=== PATIENT | female | born 1935 | race African-American/Black ===

== ENCOUNTER 2018-02-21 13:45 | Inpatient (IN) | payer OTHER, MEDICAID, MEDICARE ==
[~2018-02-21] VITALS: Ht 167.6 cm; Wt 96.6 kg
[2018-02-24] MEDS ORDERED: OMEP20TA93 PO (11:17)
[2018-02-24] MEDS ORDERED: METF1000 PO (11:17)
[2018-02-24] MEDS ORDERED: TOVI4TAB PO (11:17)
[2018-02-24] MEDS ORDERED: EZET1TAB8 PO (11:17)
[2018-02-24] MEDS ORDERED: NIFE1TAB PO (11:17)
[2018-02-24] MEDS ORDERED: HYDR-3516 PO (11:17)
[2018-02-24] MEDS ORDERED: MELO15TA20 PO (11:17)
[2018-02-24] MEDS ORDERED: LISI-515 PO (11:17)
[2018-02-24] MEDS ORDERED: CHLORHEXIDINE GLUCONATE 4% SOLN 120 ML BTL TOPICAL SCH (11:45)
[2018-02-24] MEDS ORDERED: ceFAZolin 2 GM PREMIX 50 ML IV SCH (11:45)
[2018-02-24] MEDS ORDERED: VANCOMYCIN 1000 MG/NS 250 ML (for <70 kg) IV SCH ×2 (11:45)
[2018-02-24] MEDS ORDERED: LACTATED RINGER'S 1000 ML IV PRN (11:45)
[2018-02-24] MEDS ORDERED: SODIUM CHLORID 0.9% 500 ML IV PRN (11:45)
[2018-02-24] MEDS ORDERED: METOPROLOL TARTRATE 25 MG TAB PO PRN (11:45)
[2018-02-24] MEDS ORDERED: POVIDONE IODINE 5% (ANTISEPSIS KIT) 4 APPLICATIONS EACH NARE PRN (11:45)
[2018-02-24] MEDS ORDERED: CHLORHEXIDINE GLUCONATE 2 % 1 PACK (2 CLOTHS) TOPICAL PRN (11:45)
[2018-02-24] MEDS ORDERED: GENTAMICIN SULFATE 80 MG/2 ML VIAL ONE (11:54)
[2018-02-24] MEDS ORDERED: ONDANSETRON HCL 4 MG/2 ML VIAL IV ONE (12:00)
[2018-02-24] MEDS ORDERED: LIDOCAINE HCL 1% PF 5 ML SYRINGE OTHER ONE (12:00)
[2018-02-24] MEDS ORDERED: ceFAZolin INJ 1,000 MG VIAL IV ONE (12:00)
[2018-02-24] MEDS ORDERED: PROPOFOL 200 MG/20 ML AMP IV ONE (12:00)
[2018-02-24] MEDS ORDERED: ePHEDrine/NS 25 MG/5 ML SYRINGE IV ONE (12:00)
[2018-02-24] MEDS ORDERED: LACTATED RINGER'S 1000 ML INJ 1,000 ML IV ONE (12:00)
[2018-02-24] MEDS ORDERED: PHENYLEPH/NS 1000 MCG/10 ML SYR IV ONE (12:00)
[2018-02-24] MEDS ORDERED: MIDAZOLAM HCL 2 MG/2 ML VIAL ONE (12:20)
[2018-02-24] MEDS ORDERED: BUPIVACAINE LIPOSOME PF 1.3% 20 ML VIAL ONE (12:20)
[2018-02-24] MEDS ORDERED: ACETAMINOPHEN 1000 MG/100 ML 100 ML IV ONE ×2 (12:22→16:08)
[2018-02-24] MEDS ORDERED: LIDOCAINE HCL 1% PF 5 ML AMPULE ONE (12:27)
[2018-02-24] MEDS ORDERED: PROPOFOL 500 MG/50 ML INJ 50 ML ONE (12:50)
[2018-02-24] MEDS ORDERED: BUPIVACAINE PF 0.75% DEX-WATER INJ 2 ML AMP ONE (12:51)
[2018-02-24] MEDS ORDERED: ROPIVACAINE PERI-ARTICULAR INJECTION. P-ARTICULR SCH ×5 (13:00)
[2018-02-24] MEDS ORDERED: HYDR-3288 PO (17:09)
[2018-02-24] MEDS ORDERED: ASPI81TA23 PO (17:10)
[2018-02-24] MEDS ORDERED: WALKER WHEELS/F1 MIS (17:11)
[2018-02-24] MEDS ORDERED: *morphine SULFATE 4 MG/ML PERIprocedure ONLY ONE (17:14)
[2018-02-24] MEDS ORDERED: ACETAMINOPHEN/HYDROcodone 325 MG/7.5 MG TAB PO PRN (17:15)
[2018-02-24] MEDS ORDERED: ALUMINUM/MAGNESIUM/SIMETH 30 ML CUP PO PRN (17:15)
[2018-02-24] MEDS ORDERED: ZOLPIDEM TARTRATE 5 MG TAB PO PRN (17:15)
[2018-02-24] MEDS ORDERED: Post-op Orders (for Pharmacy) XX ONE (17:15)
--- NOTE | 2018-02-24 17:17 | HHI.PR ---
Immediate Post Op Note Procedure Date: February 24, 2018 Pre Op Diagnosis: R Knee Severe OA;Genu Valgus Deformity Post Op Diagnosis: Same Surgeon: Jaret Whitehead MD Box Attacher(s): Louisa Smith PA-C Procedure: R TKR Complications: None Specimen(s) removed: None Estimated blood loss: 50cc Anesthesia: Regional Block, Spinal, Local Drains: Hemovac Tourniquet time (min at mmHg) 75 mins at 250 mm Hg Patient to: PACU Patient Condition: Good Implant/Devices: SEE IMPLANT LOG (if applicable) Date/Time of Procedure: SEE SURGICAL CARE RECORD Jaret Whitehead MD February 24, 2018 17:17
[2018-02-24] MEDS ORDERED: *morphine SULFATE 8 MG/ML PERIprocedure ONLY ONE ×2 (17:21→17:35)
[2018-02-24] MEDS ORDERED: DO NOT ADM ANY ANTICOAGULANT DRUGS PRN (17:30)
[2018-02-24] MEDS: LACTATED RINGER'S 1000 ML INJ 1,000 ML IV SCH (17:30)
[2018-02-24] MEDS ORDERED: MORPHINE SULFATE 4 MG/ML INJ IV PRN (17:30)
--- NOTE | 2018-02-24 17:43 | RADRPT ---
EXAM DATE/TIME: 02/24/2018 17:17 [place] COMPARISON: No previous studies available for comparison. INDICATIONS : Post Op MEDICAL HISTORY : None. SURGICAL HISTORY : None. ENCOUNTER: Initial ACUITY: 1 day PAIN SCORE: Non-responsive. LOCATION: Right Knee FINDINGS: Right total knee arthroplasty is present. Hardware appears intact. Alignment is anatomic. Skin staple s are present ventrally. Surgical drain is present. CONCLUSION: Satisfactory appearance post right TKA Jonathon Curry MD on February 24, 2018 at 17:41 Board Certified Radiologist. This report was verified electronically.
[2018-02-24] MEDS ORDERED: *HYDROmorphone PF 0.5 MG/0.5 ML PERIprocedure ONLY ONE (18:00)
[2018-02-24 20:03] VITALS: BP 150/72; PULSE 85; RESP 17; TEMP 97.7; O2SAT 93
--- NOTE | 2018-02-24 20:30 | MP ---
cc: Jaret Whitehead MD, Roy DATE OF OPERATION: 02/24/2018 PREOPERATIVE DIAGNOSIS: Right knee severe tricompartment osteoarthritis, genu valgus deformity. POSTOPERATIVE DIAGNOSIS: Right knee severe tricompartment osteoarthritis, genu valgus deformity. PROCEDURE PERFORMED: Right total knee arthroplasty-cemented [employer] Vanguard. SURGEON: Jaret Whitehead MD TESTER OPERATOR: Louisa Smith PA-C TOURNIQUET TIME: 75 minutes at 250 mmHg. ESTIMATED BLOOD LOSS: 50 mL. ANESTHESIA: Spinal, regional adductor canal block, intraarticular block. CONDITION: Stable. PLAN OF ACTIVITIES: As per orders. DESCRIPTION OF PROCEDURE: My bankruptcy assistant, Louisa Smith PA-C was present for the entirety of the surgical case. She was medically necessary for the entire case because of the complexity of the case and to facilitate the performance of the procedure. The GLAZIER APPRENTICE at the back table did not have the skill set for this case to manipulate the instruments, e.g. multiple different soft tissue retractors, trial implants, and permanent implants, including bone cement. The patient was brought in the operating room and had satisfactory adductor canal regional anesthesia, spinal anesthesia by Dr. Samm Stubbs, department of anesthesia. The right lower extremity was prepped and draped in the usual sterile manner. The extremity was exsanguinated by elevation and the tourniquet was inflated to 250 mmHg. A small anterior exposure to the knee was made. A paramedian capsulotomy was performed and the patella was dislocated laterally. The patient was found to have severe tricompartmental osteoarthritis with a genu valgus deformity. Using the [employer] Vanguard total knee arthroplasty system, IM guide was used for the distal femur to accept a 70 mm femoral component. Extramedullary guide was used for the proximal tibia to accept the 75 mm tibial component. Considerable time was made in providing appropriate balance in both flexion and extension, including removal of posterior osteophytes from the distal femur laterally. The knee was found to be well-balanced with the 10 mm insert. The undersurface of the patella was removed and a 31 mm patellar 3-prong prosthesis was used. All trial components were removed and preparation for cementing was made. The knee was injected with local anesthesia, provided by the department of pharmacy, 100 mL was the injection. Then, the knee was prepared for cementing, using Waterpik irrigation and drying with sponges and suction. Two packages of bone cement were used from [employer], high-viscosity bone cement. Initially, the tibial component was cemented, which was a 75 mm tibial component, followed by the femoral component, which was a #70 femoral component. All excess bone cement was removed and a 10 mm trial insert was inserted and the undersurface of the patella was cemented in, using a 31 mm, 3-prong patellar prosthesis. The bone cement was allowed to harden for 12 minutes. All trial components were removed and a 10 x 75 mm polyethylene plastic lipped was inserted onto the proximal tibial tray. The patient was found to have excellent stability, excellent balancing of the knee. A lateral retinacular release was performed and then, the patella was found to track very well in the patellofemoral compartment with a "no-thumbs technique." Tourniquet was deflated. All bleeders were then coagulated. The wound itself was dry. The wound was irrigated with 4000 mL of sterile saline antibiotic solution, using the Waterpik irrigation system. The wound was closed over an 1/8 inch Hemovac drain. The capsule and extensor mechanism were repaired, using multiple interrupted #2 Ti-Cron suture. The wound was closed in layers, using 0 Vicryl and 2-0 Vicryl. Skin was approximated with skin rosanna. Sterile dressings were applied. The patient tolerated the procedure well and arrived to the recovery room in stable and satisfactory condition. MD KAMAR Kent/KATHIE/leyla , 05:02 PM , 05:56 PM
[2018-02-24] MEDS: ASPIRIN EC 81 MG TABEC PO SCH (21:52)
[2018-02-24 23:52] VITALS: BP 127/63; PULSE 87; RESP 17; TEMP 98.1; O2SAT 94
[2018-02-25 04:01] LABS: HEMATOCRIT 31.4 % (35.0-46.0); HEMOGLOBIN 10.1 GM/DL (11.6-15.3)
[2018-02-25] MEDS: LACTATED RINGER'S 1000 ML INJ 1,000 ML IV SCH ×2 (04:09→18:05)
[2018-02-25 04:50] VITALS: BP 138/66; PULSE 87; RESP 16; TEMP 99.3; O2SAT 93
--- NOTE | 2018-02-25 07:18 | PD.ORT.PN ---
Subjective Subjective Remarks POD#1 R TKR No C/O SOB;no chest pain Explained to patient/son Sarbjit operative findings;answered multiple questions Objective Vitals Vital Signs Date Time Temp Pulse Resp B/P (MAP) Pulse Ox O2 Delivery O2 Flow Rate FiO2 02/25/18 04:50 99.3 87 16 138/66 (90) 93 02/24/18 23:52 98.1 87 17 127/63 (84) 94 02/24/18 20:03 97.7 85 17 150/72 (98) 93 02/24/18 18:43 Room Air 02/24/18 18:00 84 16 143/68 (93) 97 Room Air 02/24/18 17:45 74 16 130/61 (84) 97 Room Air 02/24/18 17:30 70 16 112/59 (76) 97 Room Air 02/24/18 17:15 76 16 130/59 (82) 98 Room Air 02/24/18 17:10 98.0 84 16 129/57 (81) 99 02/24/18 11:33 98.3 82 16 136/77 (96) 100 I/O 02/24/18 02/24/18 02/24/18 02/25/18 02/25/18 02/25/18 07:00 15:00 23:00 07:00 15:00 23:00 Intake Total 1450 ml 561 ml Output Total 100 ml 15 ml Balance 1350 ml 546 ml Intake IV Total 50 ml 561 ml Other 1400 ml Output Drainage Total 50 ml 15 ml Estimated Blood Loss 50 ml # Voids 2 Result Diagram: 02/25/18 0331 Imaging Last 24 hours Impressions Knee X-Ray 02/24/18 1705 Signed Impressions: Service Date/Time: Saturday, February 24, 2018 17:17 - CONCLUSION: Satisfactory appearance post right TKA Jonathon Curry MD Objective Remarks N/V intact Dressings dry Assessment & Plan Assessment and Plan Ortho stable PT/Rehab Aspirin EC 81mg BID x 4 weeks,TEDS for DVT/PE prophylaxsis Discharge SNF tomorrow if medically stable Jaret Whitehead MD February 25, 2018 07:18
[2018-02-25 08:00] VITALS: BP 146/70; PULSE 95; RESP 19; TEMP 98.8; O2SAT 94
[2018-02-25] MEDS: ACETAMINOPHEN/HYDROcodone 325 MG/7.5 MG TAB PO PRN ×4 (08:00→20:15)
[2018-02-25] MEDS: metFORMIN HCL 500 MG TAB PO SCH ×2 (10:00→18:14)
[2018-02-25] MEDS: EZETIMIBE 10 MG TAB PO SCH (10:00)
--- NOTE | 2018-02-25 10:18 | PD.CONS ---
HPI Service [facility] Hospitalists Consult Requested By Dr. Whitehead Reason for Consult Medical management Primary Care Physician No Primary Care Physician Diagnoses: (1) Osteoarthritis of right knee History of Present Illness 82-year-old female with history of osteoarthritis, HTN, DM, GERD, admitted to [facility] for right total knee arthroplasty by Dr. Whitehead. Hospitalist consulted for medical management. The patient seen on postop day 1. Son is at bedside. She is seen sitting on the side of the bed, attempting ambulation with physical therapy. She reports right knee pain rated 8/10, improved after receiving pain medications. She states she has some slight dizziness associated with the knee pain. Denies any fever/chills, headache, lightheadedness, chest pain, palpitations, shortness of breath, abdominal pain, nausea/vomiting, or diarrhea. She has no other medical complaints at this time. Review of Systems Except as stated in HPI: all other systems reviewed are Neg Past Family Social History Allergies: Coded Allergies: sodium chloride (Verified Adverse Reaction, Intermediate, Swelling, ) PO SALT INTAKE CAUSES SWELLING OF TONGUE AND "PEELING LIPS" Past Medical History Osteoarthritis Hypertension Diabetes mellitus GERD Past Surgical History Right total knee arthroplasty 02/24 during this admission Dental implants Hysterectomy Reported Medications Toviaz ER (Fesoterodine Fumarate) 4 mg Joao 4 Mg PO DAILY Hydrocodone-Acetaminophen 5-325 mg Tab 1 Tab PO Q6H PRN Meloxicam 15 Mg Tab 15 Mg PO DAILY Metformin (Metformin HCl) 1,000 Mg Tab 1,000 Mg PO BID With a meal Ezetimibe 10 Mg Tab 10 Mg PO DAILY Lisinopril 20 Mg Tab 20 Mg PO DAILY Omeprazole 20 Mg Tab 20 Mg PO DAILY Nifedipine ER 24 HR (Nifedipine) 90 Mg Tab 90 Mg PO DAILY Active Ordered Medications Current Medications Medications (Trade) Dose Ordered Sig/Janelle Route Start Time Stop Time Status Last Admin (Zetia) 10 mg DAILY PO 02/25/18 09:00 (Prinivil) 20 mg DAILY PO 02/25/18 09:00 (Glucophage) 1,000 mg BIDPC PO 02/25/18 09:00 (Procardia Xl) 90 mg DAILY PO 02/25/18 09:00 (Detrol La) 4 mg DAILY PO 02/25/18 09:00 (Protonix) 20 mg DAILY PO 02/25/18 09:00 Lactated Ringer's 1,000 ml @ 80 mls/hr [id number] IV 02/24/18 17:05 02/24/18 17:30 (Morphine Inj) 4 mg Q3H PRN IV 02/24/18 17:30 (Meherrin 7.5-325 Mg) 1 tab Q4H PRN PO 02/24/18 17:15 (Meherrin 7.5-325 Mg) 2 tab Q4H PRN PO 02/24/18 17:15 02/25/18 08:00 (Zofran Odt) 4 mg Q6H PRN PO 02/24/18 17:30 (Mag-Al Plus Susp Liq) 30 ml Q6H PRN PO 02/24/18 17:15 (Ambien) 5 mg HS PRN PO 02/24/18 17:15 (Ecotrin Ec) 81 mg BID PO 02/24/18 21:00 03/24/18 09:01 02/24/18 21:52 ([facility] Nursing Information) ALL NURSING DEPARTME... UNSCH PRN .XX 02/24/18 17:30 02/25/18 17:29 Family History Mother with CHF Father , had amputations Social History Denies any tobacco, alcohol, or illicit drug use. Physical Exam Vital Signs Vital Signs Date Time Temp Pulse Resp B/P (MAP) Pulse Ox O2 Delivery O2 Flow Rate FiO2 02/25/18 08:00 98.8 95 19 146/70 (95) 94 02/25/18 04:50 99.3 87 16 138/66 (90) 93 02/24/18 23:52 98.1 87 17 127/63 (84) 94 02/24/18 20:03 97.7 85 17 150/72 (98) 93 02/24/18 18:43 Room Air 02/24/18 18:00 84 16 143/68 (93) 97 Room Air 02/24/18 17:45 74 16 130/61 (84) 97 Room Air 02/24/18 17:30 70 16 112/59 (76) 97 Room Air 02/24/18 17:15 76 16 130/59 (82) 98 Room Air 02/24/18 17:10 98.0 84 16 129/57 (81) 99 02/24/18 11:33 98.3 82 16 136/77 (96) 100 Physical Exam GENERAL: Well-nourished, well-developed pleasant elderly female patient in NAD. SKIN: Warm and dry. No rash. HEAD: Normocephalic. Atraumatic. EYES: Pupils equal and round. No scleral icterus. No injection or drainage. ENT: No nasal bleeding or discharge. Mucous membranes pink and moist. NECK: Supple. Trachea midline. CARDIOVASCULAR: Regular rate and rhythm. No murmur appreciated. RESPIRATORY: No accessory muscle use. Clear to auscultation. Breath sounds equal bilaterally. GASTROINTESTINAL: Abdomen soft, non-tender, nondistended. Normoactive bowel sounds x4. MUSCULOSKELETAL: No obvious deformities. Extremities without clubbing, cyanosis , or edema. Right lower extremity in surgical dressing with Navjot wrap, CDI. NEUROLOGICAL: Awake and alert. No obvious cranial nerve deficits. Motor grossly within normal limits. Normal speech. PSYCHIATRIC: Appropriate mood and affect; insight and judgment normal. Laboratory Laboratory Tests Test 02/25/18 03:31 Hemoglobin 10.1 Hematocrit 31.4 Result Diagram: 02/25/18 0331 Imaging Last Impressions Knee X-Ray 02/24/18 6026 Signed Impressions: Service Date/Time: Saturday, February 24, 2018 17:17 - CONCLUSION: Satisfactory appearance post right TKA Jonathon Curry MD Assessment and Plan Problem List: (1) Osteoarthritis of right knee ICD Code: M17.11 - Unilateral primary osteoarthritis, right knee Assessment and Plan 82-year-old female with history of osteoarthritis, HTN, DM, GERD, admitted to [facility] for right total knee arthroplasty by Dr. Whitehead. Osteoarthritis s/p Right TKA: Surgery done 02/24/[address] Whitehead. -Continue pain control with Meherrin prn -DVT prophylaxis with aspirin bid -Continue physical therapy, progress to full weightbearing Anemia: Hgb 10.1 post-operatively -stable, no signs of profuse bleeding -monitor CBC Hypertension/Hyperlipidemia: Chronic, BP fairly well-controlled -Continue patient's nifedipine 90 mg daily, lisinopril 20 mg daily, [id number] mg daily -Monitor BP, adjust antihypertensives as needed Diabetes mellitus: Chronic -Continue patient's metformin 1000 mg bid GERD: Chronic -Continue patient's PPI DVT prophylaxis: Aspirin bid per ortho Discharge Planning: The patient is medically stable for discharge. Discussed Condition With Patient, Patient's Son at bedside Problem Qualifiers (1) Osteoarthritis of right knee: Qualified Codes: M17.11 - Unilateral primary osteoarthritis, right knee Linda Phelan PA-C February 25, 2018 10:18
[2018-02-25] MEDS: NIFEdipine 90 MG SUSTAINED RELEASE TAB PO SCH (10:24)
[2018-02-25] MEDS: PANTOPRAZOLE SOD 20 MG DELAYED RELEASE TAB PO SCH (10:24)
[2018-02-25] MEDS: LISINOPRIL 20 MG TAB PO SCH (10:24)
[2018-02-25] MEDS: TOLTERODINE TARTRATE 4 MG CAP LA PO SCH (10:24)
[2018-02-25] MEDS: ASPIRIN EC 81 MG TABEC PO SCH ×2 (10:24→20:14)
[2018-02-25] MEDS: ONDANSETRON ODT 4 MG TAB PO PRN (10:25)
[2018-02-25 12:00] VITALS: BP 160/74; PULSE 108; RESP 17; TEMP 98.6; O2SAT 94
[2018-02-25 20:00] VITALS: BP 123/58; PULSE 94; RESP 20; TEMP 98.9; O2SAT 96
[2018-02-26] VITALS: BP 134/61; PULSE 106; RESP 20; TEMP 100.8; O2SAT 96
[2018-02-26 04:20] VITALS: BP 136/67; PULSE 103; RESP 17; TEMP 100.8; O2SAT 93
[2018-02-26 05:48] LABS: AUTOMATED NEUTROPHIL # 4.2 TH/MM3 (1.8-7.7); BASOPHIL % 0.3 % (0.0-2.0); EOSINOPHIL % 0.4 % (0.0-4.0); HEMATOCRIT 27.9 % (35.0-46.0); HEMOGLOBIN 9.1 GM/DL (11.6-15.3); LYMPH % 33.9 % (9.0-44.0); LYMPHOCYTE # 2.6 TH/MM3 (1.0-4.8); MEAN CELL VOLUME 83.3 FL (80.0-100.0); MEAN CORPUSCULAR HEMOGLOBIN 27.2 PG (27.0-34.0); MEAN CORPUSCULAR HGB CONC 32.6 % (32.0-36.0); MEAN PLATELET VOLUME 8.6 FL (7.0-11.0); MONOCYTE # 0.8 TH/MM3 (0-0.9); NEUT % 54.4 % (16.0-70.0); PLATELET COUNT 181 TH/MM3 (150-450); RED BLOOD COUNT 3.35 MIL/MM3 (4.00-5.30); RED CELL DISTRIBUTION WIDTH 15.9 % (11.6-17.2); WHITE BLOOD COUNT 7.7 TH/MM3 (4.0-11.0)
[2018-02-26 06:12] LABS: BICARBONATE 29.8 MEQ/L (21.0-32.0); CALCIUM 8.4 MG/DL (8.5-10.1); CREATININE 0.89 MG/DL (0.50-1.00)
[2018-02-26] MEDS: LACTATED RINGER'S 1000 ML INJ 1,000 ML IV SCH ×2 (06:18→19:05)
--- NOTE | 2018-02-26 07:48 | PD.ORT.PN ---
Subjective Subjective Remarks pt complains of post operative right knee pain Objective Vitals Vital Signs Date Time Temp Pulse Resp B/P (MAP) Pulse Ox O2 Delivery O2 Flow Rate FiO2 02/26/18 04:20 100.8 103 17 136/67 (90) 93 02/26/18 00:00 100.8 106 20 134/61 (85) 96 02/25/18 20:00 98.9 94 20 123/58 (79) 96 02/25/18 19:14 Room Air 02/25/18 12:00 98.6 108 17 160/74 (102) 94 02/25/18 08:00 98.8 95 19 146/70 (95) 94 I/O 02/25/18 02/25/18 02/25/18 02/26/18 02/26/18 02/26/18 07:00 15:00 23:00 07:00 15:00 23:00 Intake Total 1041 ml 580 ml Output Total 15 ml 40 ml 4 ml Balance 1026 ml -40 ml 576 ml Intake Oral 480 ml 480 ml IV Total 561 ml 100 ml Output Urine Total 4 ml Drainage Total 15 ml 40 ml # Voids 1 # Bowel Movements 0 0 Result Diagram: 02/26/18 0512 02/26/18 0512 Imaging Last 24 hours Impressions Knee X-Ray 02/24/18 1705 Signed Impressions: Service Date/Time: Saturday, February 24, 2018 17:17 - CONCLUSION: Satisfactory appearance post right TKA Jonathon Curry MD Objective Remarks resting in bed N/V intact Dressings dry Assessment & Plan Assessment and Plan POD # 2 s/p R TKA Ortho stable PT/Rehab Aspirin EC 81mg BID x 4 weeks,TEDS for DVT/PE prophylaxsis [facility] Louisa Smith February 26, 2018 07:48
[2018-02-26 08:00] VITALS: BP 145/70; PULSE 98; RESP 17; TEMP 99.1; O2SAT 93
[2018-02-26] MEDS: ACETAMINOPHEN/HYDROcodone 325 MG/7.5 MG TAB PO PRN ×3 (09:30→18:44)
[2018-02-26] MEDS: ASPIRIN EC 81 MG TABEC PO SCH ×2 (09:31→20:53)
[2018-02-26] MEDS: NIFEdipine 90 MG SUSTAINED RELEASE TAB PO SCH (09:31)
[2018-02-26] MEDS: TOLTERODINE TARTRATE 4 MG CAP LA PO SCH (09:31)
[2018-02-26] MEDS: EZETIMIBE 10 MG TAB PO SCH (09:31)
[2018-02-26] MEDS: LISINOPRIL 20 MG TAB PO SCH (09:31)
[2018-02-26] MEDS: metFORMIN HCL 500 MG TAB PO SCH ×2 (09:31→18:40)
[2018-02-26] MEDS: PANTOPRAZOLE SOD 20 MG DELAYED RELEASE TAB PO SCH (09:31)
--- NOTE | 2018-02-26 09:56 | RADRPT ---
EXAM DATE: 02/26/2018 9:47 AM EDT AGE/SEX: 82 years / Female INDICATIONS: Fever. CLINICAL DATA: This is the patient's initial encounter. Patient reports that signs and symptoms have been present for 2 days and indicates a pain score of 0/10. MEDICAL/SURGICAL HISTORY: None. None. COMPARISON: PCI, XR CHEST PA AND LAT, 02/18/2018. . FINDINGS: No new focal pleural or parenchymal opacities. Persistent elevation of the right hemidiaphragm. Cardi omediastinal contours are stable. Bony thorax is intact. CONCLUSION: 1. No acute abnormality or interval change. Electronically signed by: Maged Dickerson MD 02/26/2018 9:55 AM EDT
[2018-02-26] MEDS: ONDANSETRON ODT 4 MG TAB PO PRN (10:23)
--- NOTE | 2018-02-26 11:50 | HHI.PR ---
Subjective Remarks Follow-up for right TKA, HTN, DM, GERD. Patient reports intractable right knee pain today, rated 10/10, requesting pain medications. The patient spiked a fever overnight with T-max 100.8 and tachycardia heart rate 106. Patient reports feeling feverish with some sweats last night, however now improved. She denies any lightheadedness/dizziness, cough, congestion, nausea/vomiting, diarrhea, or urinary complaints. She states she has been using her incentive spirometer as instructed. She has no other medical complaints at this time. Objective Vitals Vital Signs Date Time Temp Pulse Resp B/P (MAP) Pulse Ox O2 Delivery O2 Flow Rate FiO2 02/26/18 08:00 99.1 98 17 145/70 (95) 93 02/26/18 04:20 100.8 103 17 136/67 (90) 93 02/26/18 00:00 100.8 106 20 134/61 (85) 96 02/25/18 20:00 98.9 94 20 123/58 (79) 96 02/25/18 19:14 Room Air 02/25/18 12:00 98.6 108 17 160/74 (102) 94 I/O 02/25/18 02/25/18 02/25/18 02/26/18 02/26/18 02/26/18 07:00 15:00 23:00 07:00 15:00 23:00 Intake Total 1041 ml 580 ml Output Total 15 ml 40 ml 4 ml Balance 1026 ml -40 ml 576 ml Intake Oral 480 ml 480 ml IV Total 561 ml 100 ml Output Urine Total 4 ml Drainage Total 15 ml 40 ml # Voids 1 # Bowel Movements 0 0 Result Diagram: 02/26/18 0512 02/26/18 0512 Imaging Last Impressions Chest X-Ray 02/26/18 0000 Signed Impressions: CONCLUSION: Knee X-Ray 02/24/18 1705 Signed Impressions: Service Date/Time: Saturday, February 24, 2018 17:17 - CONCLUSION: Satisfactory appearance post right TKA Jonathon Curry MD Objective Remarks GENERAL: Well-nourished, well-developed pleasant elderly female patient in [facility]. SKIN: Warm and dry. No rash. HEENT: Normocephalic. Atraumatic. Pupils equal and round. Mucous membranes pink and moist. NECK: Supple. Trachea midline. CARDIOVASCULAR: Regular rate and rhythm. No murmur appreciated. RESPIRATORY: No accessory muscle use. Clear to auscultation. Breath sounds equal bilaterally. GASTROINTESTINAL: Abdomen soft, non-tender, nondistended. Normoactive bowel sounds x4. MUSCULOSKELETAL: No obvious deformities. Extremities without clubbing, cyanosis , or edema. Right lower extremity in surgical dressing with Navjot wrap, dressing CDI. NEUROLOGICAL: Awake and alert. No obvious cranial nerve deficits. Motor grossly within normal limits. Moving all extremities spontaneously. Normal speech. PSYCHIATRIC: Appropriate mood and affect; insight and judgment normal. Procedures Right TKA on 02/24/[address] Whitehead. Medications and IVs Current Medications Medications (Trade) Dose Ordered Sig/Janelle Route Start Time Stop Time Status Last Admin (Zetia) 10 mg DAILY PO 02/25/18 09:00 02/26/18 09:31 (Prinivil) 20 mg DAILY PO 02/25/18 09:00 02/26/18 09:31 (Glucophage) 1,000 mg BIDPC PO 02/25/18 09:00 02/26/18 09:31 (Procardia Xl) 90 mg DAILY PO 02/25/18 09:00 02/26/18 09:31 (Detrol La) 4 mg DAILY PO 02/25/18 09:00 02/26/18 09:31 (Protonix) 20 mg DAILY PO 02/25/18 09:00 02/26/18 09:31 Lactated Ringer's 1,000 ml @ 80 mls/hr [id number] IV 02/24/18 17:05 02/24/18 17:30 (Morphine Inj) 4 mg Q3H PRN IV 02/24/18 17:30 (Hartly 7.5-325 Mg) 1 tab Q4H PRN PO 02/24/18 17:15 (Hartly 7.5-325 Mg) 2 tab Q4H PRN PO 02/24/18 17:15 02/26/18 09:30 (Zofran Odt) 4 mg Q6H PRN PO 02/24/18 17:30 02/26/18 10:23 (Mag-Al Plus Susp Liq) 30 ml Q6H PRN PO 02/24/18 17:15 (Ambien) 5 mg HS PRN PO 02/24/18 17:15 (Ecotrin Ec) 81 mg BID PO 02/24/18 21:00 03/24/18 09:01 02/26/18 09:31 A/P Problem List: (1) Osteoarthritis of right knee ICD Code: M17.11 - Unilateral primary osteoarthritis, right knee Assessment and Plan 82-year-old female with history of osteoarthritis, HTN, DM, GERD, admitted to [facility] for right total knee arthroplasty by Dr. Whitehead. Osteoarthritis s/p Right TKA: Surgery done 02/24/[address] Whitehead. -Continue pain control with Hartly prn -DVT prophylaxis with aspirin bid -Continue physical therapy, progress to full weightbearing Anemia: Hgb 10.1 post-operatively -stable, no signs of profuse bleeding -monitor CBC, trended down slightly to 9.1 -continue to monitor SIRS: Patient with fever overnight Tmax 100.8 and tachycardia HR 106. No obvious signs of infection. -Check CXR and UA -Monitor CBC and vitals -Encourage incentive spirometer and ambulation Hypertension/Hyperlipidemia: Chronic, BP fairly well-controlled -Continue patient's nifedipine 90 mg daily, lisinopril 20 mg daily, [id number] mg daily -Monitor BP, adjust antihypertensives as needed Diabetes mellitus: Chronic -Continue patient's metformin 1000 mg bid GERD: Chronic -Continue patient's PPI DVT prophylaxis: Aspirin bid per ortho Discharge Planning Ortho cleared patient for discharge to SNF on 02/27. The patient had fever overnight with SIRS criteria, evaluating for infection, if work up unremarkable and no further fevers, patient will be medically cleared for discharge on 02/27. Problem Qualifiers (1) Osteoarthritis of right knee: Qualified Codes: M17.11 - Unilateral primary osteoarthritis, right knee Linda Phelan PA-C February 26, 2018 11:50 am
[2018-02-26 11:59] VITALS: BP 160/71; PULSE 98; RESP 17; TEMP 98.5; O2SAT 93
[2018-02-26 14:34] LABS: BILIRUBIN, URINE NEG (NEG); BLOOD, URINE NEG (NEG); GLUCOSE,URINE NEG (NEG); KETONE, URINE NEG (NEG); NITRITE,URINE NEG (NEG); SQUAMOUS EPITHELIAL CELL URINE 4 /hpf (0-5); URINE COLOR YELLOW (YELLW/STRAW); URINE LEUKOCYTE ESTERASE NEG (NEG)
[2018-02-26 16:00] VITALS: BP 156/73; PULSE 96; RESP 17; TEMP 99.9; O2SAT 93
[2018-02-26 20:00] VITALS: BP 163/74; PULSE 106; RESP 22; TEMP 99.9; O2SAT 94
[2018-02-27] VITALS (7 sets, daily range): BP systolic 130–164; BP diastolic 60–75; PULSE 95–107; RESP 17–22; TEMP 98.2–99.9; O2SAT 92–95
[2018-02-27] MEDS: ACETAMINOPHEN/HYDROcodone 325 MG/7.5 MG TAB PO PRN ×4 (05:28→22:32)
[2018-02-27] MEDS: LACTATED RINGER'S 1000 ML INJ 1,000 ML IV SCH ×2 (07:35→20:05)
--- NOTE | 2018-02-27 09:09 | PD.ORT.PN ---
Subjective Subjective Remarks pt complains of post operative right knee pain ready to be discharged to [facility] today Objective Vitals Vital Signs Date Time Temp Pulse Resp B/P (MAP) Pulse Ox O2 Delivery O2 Flow Rate FiO2 02/27/18 08:00 98.7 99 18 140/67 (91) 95 02/27/18 04:00 99.6 100 22 139/67 (91) 93 02/27/18 00:00 99.5 107 22 158/69 (98) 95 02/26/18 20:00 99.9 106 22 163/74 (103) 94 02/26/18 16:00 99.9 96 17 156/73 (100) 93 02/26/18 11:59 98.5 98 17 160/71 (100) 93 I/O 02/26/18 02/26/18 02/26/18 02/27/18 02/27/18 02/27/18 07:00 15:00 23:00 07:00 15:00 23:00 Intake Total 580 ml 720 ml Output Total 4 ml Balance 576 ml 720 ml Intake Oral 480 ml 720 ml IV Total 100 ml Output Urine Total 4 ml # Voids 3 # Bowel Movements 0 1 Result Diagram: 02/26/18 0512 02/26/18 0512 Imaging Last 24 hours Impressions Knee X-Ray 02/24/18 1705 Signed Impressions: Service Date/Time: Saturday, February 24, 2018 17:17 - CONCLUSION: Satisfactory appearance post right TKA Jonathon Curry MD Objective Remarks seen and examined by Dr. Jaret Whitehead N/V intact Dressings dry Assessment & Plan Assessment and Plan POD # 3 s/p R TKA Ortho stable PT/Rehab Aspirin EC 81mg BID x 4 weeks,TEDS for DVT/PE prophylaxsis may resume her pre-operative Meloxicam [facility], orthopedically stable Louisa Smith February 27, 2018 09:09
[2018-02-27] MEDS: TOLTERODINE TARTRATE 4 MG CAP LA PO SCH (09:15)
[2018-02-27] MEDS: metFORMIN HCL 500 MG TAB PO SCH ×2 (09:15→18:42)
[2018-02-27] MEDS: PANTOPRAZOLE SOD 20 MG DELAYED RELEASE TAB PO SCH (09:15)
[2018-02-27] MEDS: ASPIRIN EC 81 MG TABEC PO SCH ×2 (09:15→22:28)
[2018-02-27] MEDS: NIFEdipine 90 MG SUSTAINED RELEASE TAB PO SCH (09:16)
[2018-02-27] MEDS: EZETIMIBE 10 MG TAB PO SCH (09:16)
[2018-02-27] MEDS: LISINOPRIL 20 MG TAB PO SCH (09:16)
[2018-02-27] MEDS ORDERED: LACTULOSE SYRUP 20 GM/30 ML CUP PO ONE (10:30)
[2018-02-27] MEDS ORDERED: BISACODYL 10 MG SUPP RECTAL PRN ×2 (10:30→11:30)
--- NOTE | 2018-02-27 11:18 | HHI.PR ---
Subjective Remarks 82-year-old female with history of osteoarthritis, HTN, DM, GERD, admitted to [facility] for right total knee arthroplasty by Dr. Whitehead. Hospitalist consulted for medical management. The patient seen on postop day 1. Son is at bedside. She is seen sitting on the side of the bed, attempting ambulation with physical therapy. She reports right knee pain rated 8/10, improved after receiving pain medications. She states she has some slight dizziness associated with the knee pain. Denies any fever/chills, headache, lightheadedness, chest pain, palpitations, shortness of breath, abdominal pain, nausea/vomiting, or diarrhea. She has no other medical complaints at this time. 02-26 Follow-up for right TKA, HTN, DM, GERD. Patient reports intractable right knee pain today, rated 10/10, requesting pain medications. The patient spiked a fever overnight with T-max 100.8 and tachycardia heart rate 106. Patient reports feeling feverish with some sweats last night, however now improved. She denies any lightheadedness/dizziness, cough, congestion, nausea/vomiting, diarrhea, or urinary complaints. She states she has been using her incentive spirometer as instructed. She has no other medical complaints at this time. 02-27 TO GO TO SNF TODAY FEVERS LAST NIGHT NEEDS TO DO INCENTIVE SPIROMETRY CAN DC TO SNF LATER TODAY UTI NEGATIVE CHEST XRAY NEGATIVE Able to do the incentive spirometry quite well Needs to have a bowel movement Objective Vitals Vital Signs Date Time Temp Pulse Resp B/P (MAP) Pulse Ox O2 Delivery O2 Flow Rate FiO2 02/27/18 08:00 98.7 99 18 140/67 (91) 95 02/27/18 04:00 99.6 100 22 139/67 (91) 93 02/27/18 00:00 99.5 107 22 158/69 (98) 95 02/26/18 20:00 99.9 106 22 163/74 (103) 94 02/26/18 16:00 99.9 96 17 156/73 (100) 93 02/26/18 11:59 98.5 98 17 160/71 (100) 93 I/O 02/26/18 02/26/18 02/26/18 02/27/18 02/27/18 02/27/18 06:59 14:59 22:59 06:59 14:59 22:59 Intake Total 580 ml 720 ml Output Total 4 ml Balance 576 ml 720 ml Intake Oral 480 ml 720 ml IV Total 100 ml Output Urine Total 4 ml # Voids 3 # Bowel Movements 0 1 Result Diagram: 02/26/18 0512 02/26/18 0512 Other Results Laboratory Tests Test 02/25/18 03:31 02/26/18 05:12 02/26/18 14:04 Hemoglobin 10.1 GM/DL 9.1 GM/DL Hematocrit 31.4 % 27.9 % White Blood Count 7.7 TH/MM3 Red Blood Count 3.35 MIL/MM3 Mean Corpuscular Volume 83.3 FL Mean Corpuscular Hemoglobin 27.2 PG Mean Corpuscular Hemoglobin Concent 32.6 % Red Cell Distribution Width 15.9 % Platelet Count 181 TH/MM3 Mean Platelet Volume 8.6 FL Neutrophils (%) (Auto) 54.4 % Lymphocytes (%) (Auto) 33.9 % Monocytes (%) (Auto) 11.0 % Eosinophils (%) (Auto) 0.4 % Basophils (%) (Auto) 0.3 % Neutrophils # (Auto) 4.2 TH/MM3 Lymphocytes # (Auto) 2.6 TH/MM3 Monocytes # (Auto) 0.8 TH/MM3 Eosinophils # (Auto) 0.0 TH/MM3 Basophils # (Auto) 0.0 TH/MM3 CBC Comment DIFF FINAL Differential Comment Blood Urea Nitrogen 16 MG/DL Creatinine 0.89 MG/DL Random Glucose 110 MG/DL Calcium Level 8.4 MG/DL Sodium Level 141 MEQ/L Potassium Level 3.6 MEQ/L Chloride Level 106 MEQ/L Carbon Dioxide Level 29.8 MEQ/L Anion Gap 5 MEQ/L Estimat Glomerular Filtration Rate 73 ML/MIN Urine Color YELLOW Urine Turbidity CLEAR Urine pH 6.0 Urine Specific [place] 1.015 Urine Protein TRACE mg/dL Urine Glucose (UA) NEG mg/dL Urine Ketones NEG mg/dL Urine Occult Blood NEG Urine Nitrite NEG Urine Bilirubin NEG Urine Urobilinogen LESS THAN 2.0 MG/DL Urine Leukocyte Esterase NEG Urine RBC 1 /hpf Urine WBC 1 /hpf Urine Squamous Epithelial Cells 4 /hpf Microscopic Urinalysis Comment CULT NOT INDICATED Imaging Last Impressions Chest X-Ray 02/26/18 0000 Signed Impressions: CONCLUSION: 1. No acute abnormality or interval change. Knee X-Ray 02/24/18 1705 Signed Impressions: Service Date/Time: Saturday, February 24, 2018 17:17 - CONCLUSION: Satisfactory appearance post right TKA Jonathon Curry MD Objective Remarks GENERAL: Well-nourished, well-developed pleasant elderly female patient in NAD. SKIN: Warm and dry. No rash. HEENT: Normocephalic. Atraumatic. Pupils equal and round. Mucous membranes pink and moist. NECK: Supple. Trachea midline. CARDIOVASCULAR: Regular rate and rhythm. No murmur appreciated. RESPIRATORY: No accessory muscle use. Clear to auscultation. Breath sounds equal bilaterally. GASTROINTESTINAL: Abdomen soft, non-tender, nondistended. Normoactive bowel sounds x4. MUSCULOSKELETAL: No obvious deformities. Extremities without clubbing, cyanosis , or edema. Right lower extremity in surgical dressing with Navjot wrap, dressing CDI. NEUROLOGICAL: Awake and alert. No obvious cranial nerve deficits. Motor grossly within normal limits. Moving all extremities spontaneously. Normal speech. PSYCHIATRIC: Appropriate mood and affect; insight and judgment normal. Awake alert and oriented 3 talkative and cooperative Insight and judgment is good Mood and behavior is appropriate Procedures Right TKA on 02/24/[address] Whitehead. Medications and IVs Current Medications Lactated Ringer's 1,000 ml @ 30 mls/hr Q24H PRN IV SEE LABEL COMMENTS Last administered on 02/24/18at 11:15; Start 02/24/18 at 11:45; Stop 02/24/18 at 17:14 ; Status DC Sodium Chloride 500 ml @ 30 mls/hr [id number] PRN IV SEE LABEL COMMENTS; Start at 11:45; Stop 02/24/18 at 17:14; Status DC Metoprolol Tartrate (Lopressor) 25 mg BUTTON [employer]UFTING MACHINE OPERATOR PRN PO SEE LABEL COMMENTS; Start 02/24/18 at 11:45; Stop 02/24/18 at 17:14; Status DC Povidone Iodine (Betadine 5% Antisepsis Kit) 1 applic [employer]TON [employer]ING MACHINE OPERATOR PRN EACH NARE SEE LABEL COMMENTS Last administered on 02/24/18at 11:30; Start 02/24/18 at 11:45 ; Stop 02/24/18 at 17:14; Status DC Chlorhexidine Gluconate (Chlorhexidine 2% Cloth) 3 pack [employer]TON [employer] MACHINE OPERATOR PRN TOPICAL SEE LABEL COMMENTS Last administered on 02/24/18at 10:30; Start 02/24/18 at 11:45 ; Stop 02/24/18 at 17:14; Status DC Chlorhexidine Gluconate (Hibiclens 4% Top Soln) 1 applic ONCE TOPICAL Last administered on 02/24/18at 11:30; Start 02/24/18 at 11:45; Stop 02/24/18 at 17:14 ; Status DC Cefazolin Sodium/ Dextrose 50 ml @ 100 mls/hr [employer]TON [employer] MACHINE OPERATOR IV Last administered on 02/24/18at 14:49; Start 02/24/18 at 11:45; Stop 02/24/18 at 17:14; Status DC Vancomycin HCl 1000 mg/Sodium Chloride 250 ml @ 250 mls/hr BUTTON TU[employer] MACHINE OPERATOR IV Last administered on 02/24/18at 14:11; Start 02/24/18 at 11:45; Stop 02/24/18 at 17:14 ; Status DC Ropivacaine 24.63 ml/Ketorolac Tromethamine 30 mg/Epinephrine HCl 0.5 mg/ Clonidine 80 mcg/ Sodium Chloride 100 ml @ 200 mls/hr ONCE P-ARTICULR Last administered on 02/24/18at 15:15; Start 02/24/18 at 13:00; Stop 02/24/18 at 17:14 ; Status DC Gentamicin Sulfate (Gentamicin Inj) 240 mg STK-MED ONCE .ROUTE Last administered on 02/24/18at 15:15; Start 02/24/18 at 11:54; Stop 02/24/18 at 11:55 ; Status DC Midazolam HCl (Versed Inj) 2 mg STK-MED ONCE .ROUTE ; Start 02/24/18 at 12:20; Stop 02/24/18 at 12:21; Status DC Bupivacaine Liposome (Exparel Pf 1.3% Inj) 20 ml STK-MED ONCE .ROUTE ; Start at 12:20; Stop 02/24/18 at 12:21; Status DC Acetaminophen 100 ml @ As Directed STK-MED ONCE IV ; Start 02/24/18 at 12:22; Stop 02/24/18 at 12:23; Status DC Lidocaine HCl (Xylocaine-Mpf 1% Inj) 5 ml STK-MED ONCE .ROUTE ; Start 02/24/18 at 12:27; Stop 02/24/18 at 12:28; Status DC Propofol 50 ml @ As Directed STK-MED ONCE .ROUTE ; Start 02/24/18 at 12:50; Stop 02/24/18 at 12:51; Status DC Bupivacaine HCl/ Dextrose (Marcaine Spinal Inj) 2 ml STK-MED ONCE .ROUTE ; Start 02/24/18 at 12:51; Stop 02/24/18 at 12:52; Status DC Acetaminophen 100 ml @ As Directed STK-MED ONCE IV ; Start 02/24/18 at 16:08; Stop 02/24/18 at 16:09; Status DC EZETIMIBE (Zetia) 10 mg DAILY PO Last administered on 02/27/18 09:16; Start at 09:00 Lisinopril (Prinivil) 20 mg DAILY PO Last administered on 02/27/18at 09:16; Start 02/25/18 at 09:00 Metformin HCl (Glucophage) 1,000 mg BIDPC PO Last administered on 02/27/18at 09: 15; Start 02/25/18 at 09:00 Nifedipine (Procardia Xl) 90 mg DAILY PO Last administered on 02/27/18at 09:16; Start 02/25/18 at 09:00 Tolterodine Tartrate (Detrol La) 4 mg DAILY PO Last administered on 02/27/18at 09:15; Start 02/25/18 at 09:00 Pantoprazole Sodium (Protonix) 20 mg DAILY PO Last administered on 02/27/18at 09 :15; Start 02/25/18 at 09:00 Lactated Ringer's 1,000 ml @ 80 mls/hr [id number] IV Last administered on at 17:30; Start 02/24/18 at 17:05 Cefazolin Sodium 1000 mg/Sodium Chloride 100 ml @ 200 mls/hr Q6H IV Last administered on 02/25/18at 10:25; Start 02/24/18 at 21:00; Stop 02/25/18 at 09:29 ; Status DC Miscellaneous Information (Misc Post-op Orders (for Pharmacy)) STAT ONCE XX ; Start 02/24/18 at 17:15; Stop 02/24/18 at 17:20; Status DC Morphine Sulfate (Morphine Inj) 4 mg Q3H PRN IV BREAKTHROUGH PAIN; Start at 17:30 Acetaminophen/ Hydrocodone Bitart ([place] 7.5-325 Mg) 1 tab Q4H PRN PO PAIN LESS THAN 5 ON SCALE; Start 02/24/18 at 17:15 Acetaminophen/ Hydrocodone Bitart ([place] 7.5-325 Mg) 2 tab Q4H PRN PO PAIN SCALE 5 TO 10 Last administered on 02/27/18at 09:23; Start 02/24/18 at 17:15 Ondansetron HCl (Zofran Odt) 4 mg Q6H PRN PO N/V Last administered on at 10:23; Start 02/24/18 at 17:30 Al Hydrox/Mg Hydrox/Simethicone (Mag-Al Plus Susp Liq) 30 ml Q6H PRN PO INDIGESTION; Start 02/24/18 at 17:15 Zolpidem Tartrate (Ambien) 5 mg HS PRN PO SLEEP; Start 02/24/18 at 17:15 Aspirin (Ecotrin Ec) 81 mg BID PO Last administered on 02/27/18at 09:15; Start 02/24/18 at 21:00; Stop 03/24/18 at 09:01 Morphine Sulfate (*morphine INJ PERIprocedure ONLY) 4 mg STK-MED ONCE .ROUTE Last administered on 02/24/18at 17:14; Start 02/24/18 at 17:14; Stop 02/24/18 at 17:15; Status DC Fentanyl Citrate (fentaNYL INJ) 100 mcg STK-MED ONCE .ROUTE ; Start 02/24/18 at 17:18; Stop 02/24/18 at 17:19; Status DC Morphine Sulfate (*morphine INJ PERIprocedure ONLY) 8 mg STK-MED ONCE .ROUTE Last administered on 02/24/18at 17:21; Start 02/24/18 at 17:21; Stop 02/24/18 at 17:22; Status DC Miscellaneous Information ([facility] Nursing Information) ALL NURSING DEPARTME... UNSCH PRN .XX SEE LABEL COMMENTS; Start 02/24/18 at 17:30; Stop 02/25/18 at 17: 29; Status DC Morphine Sulfate (*morphine INJ PERIprocedure ONLY) 8 mg STK-MED ONCE .ROUTE Last administered on 02/24/18at 17:35; Start 02/24/18 at 17:35; Stop 02/24/18 at 17:36; Status DC Hydromorphone HCl (*DILAUDID PF INJ PERIprocedure ONLY) 0.5 mg STK-MED ONCE .ROUTE ; Start 02/24/18 at 18:00; Stop 02/24/18 at 18:01; Status DC Lactated Ringer's 1,000 ml @ As Directed STK-MED ONCE IV ; Start 02/24/18 at 12 :00; Stop 02/25/18 at 12:33; Status DC Lidocaine HCl (Xylocaine-Mpf 1% Inj) 5 ml STK-MED ONCE OTHER ; Start 02/24/18 at 12:00; Stop 02/25/18 at 12:33; Status DC Phenylephrine HCl (Neosynephrine/ NS 1000 Mcg/10ml Syr) 1,000 mcg STK-MED ONCE IV ; Start 02/24/18 at 12:00; Stop 02/25/18 at 12:33; Status DC Ephedrine Sulfate (ePHEDrine/NS 25 MG/5 ML SYR) 25 mg STK-MED ONCE IV ; Start at 12:00; Stop 02/25/18 at 12:33; Status DC Ondansetron HCl (Zofran Inj) 4 mg STK-MED ONCE IV ; Start 02/24/18 at 12:00; Stop 02/25/18 at 12:33; Status DC Cefazolin Sodium (Ancef Inj) 2,000 mg STK-MED ONCE IV ; Start 02/24/18 at 12:00 ; Stop 02/25/18 at 12:33; Status DC Propofol (Diprivan 200 Mg/20 ml Inj) 800 mg STK-MED ONCE IV ; Start 02/24/18 at 12:00; Stop 02/25/18 at 12:33; Status DC Lactulose (Lactulose Liq) 30 ml ONCE ONCE PO ; Start 02/27/18 at 10:30; Stop at 10:31; Status DC Bisacodyl (Dulcolax Supp) 10 mg UNSCH X1 PRN RECTAL SEE LABEL COMMENTS Last administered on 02/27/18at 11:00; Start 02/27/18 at 10:30; Stop 02/27/18 at 23:59 A/P Problem List: (1) Osteoarthritis of right knee ICD Code: M17.11 - Unilateral primary osteoarthritis, right knee Assessment and Plan 82-year-old female with history of osteoarthritis, HTN, DM, GERD, admitted to [facility] for right total knee arthroplasty by Dr. Whitehead. Osteoarthritis s/p Right TKA: Surgery done 02/24/[address] Whitehead. -Continue pain control with [place] prn -DVT prophylaxis with aspirin bid -Continue physical therapy, progress to full weightbearing Anemia: Hgb 10.1 post-operatively -stable, no signs of profuse bleeding -monitor CBC, trended down slightly to 9.1 -continue to monitor SIRS: Patient with fever overnight Tmax 100.8 and tachycardia HR 106. No obvious signs of infection. -Check CXR and UA -Monitor CBC and vitals -Encourage incentive spirometer and ambulation Hypertension/Hyperlipidemia: Chronic, BP fairly well-controlled -Continue patient's nifedipine 90 mg daily, lisinopril 20 mg daily, [id number] mg daily -Monitor BP, adjust antihypertensives as needed Diabetes mellitus: Chronic -Continue patient's metformin 1000 mg bid GERD: Chronic -Continue patient's PPI DVT prophylaxis: Aspirin bid per ortho Constipation start on medications for this Discharge Planning Can discharge to SNF if has BM today Problem Qualifiers (1) Osteoarthritis of right knee: Qualified Codes: M17.11 - Unilateral primary osteoarthritis, right knee Jim Koch DO February 27, 2018 11:18
[2018-02-27] MEDS ORDERED: MIRA3350 PO (11:21)
[2018-02-27] MEDS ORDERED: SENN187 PO (11:21)
[2018-02-27] MEDS ORDERED: MAGN30S PO (11:23)
[2018-02-27] MEDS ORDERED: BISA10R PR (11:23)
[2018-02-27] MEDS: DOCUSATE SODIUM 50 MG/SENNA 8.6 MG TAB PO SCH ×2 (11:30→22:28)
[2018-02-27] MEDS ORDERED: MAGNESIUM HYDROXIDE SUSP 30 ML CUP PO PRN (11:30)
[2018-02-27] MEDS: POLYETHYLENE GLYCOL 17 GM PKG PO SCH (11:30)
[2018-02-28] MEDS ORDERED: BISACODYL 10 MG SUPP RECTAL PRN (06:00)
[2018-02-28] MEDS: ACETAMINOPHEN/HYDROcodone 325 MG/7.5 MG TAB PO PRN (06:50)
[2018-02-28 08:00] VITALS: BP 123/75; PULSE 95; RESP 18; TEMP 98.6; O2SAT 93
[2018-02-28] MEDS: LACTATED RINGER'S 1000 ML INJ 1,000 ML IV SCH (08:35)
[2018-02-28] MEDS: NIFEdipine 90 MG SUSTAINED RELEASE TAB PO SCH (09:00)
[2018-02-28] MEDS: metFORMIN HCL 500 MG TAB PO SCH (09:34)
[2018-02-28] MEDS: TOLTERODINE TARTRATE 4 MG CAP LA PO SCH (09:34)
[2018-02-28] MEDS: DOCUSATE SODIUM 50 MG/SENNA 8.6 MG TAB PO SCH (09:34)
[2018-02-28] MEDS: EZETIMIBE 10 MG TAB PO SCH (09:34)
[2018-02-28] MEDS: LISINOPRIL 20 MG TAB PO SCH (09:34)
[2018-02-28] MEDS: PANTOPRAZOLE SOD 20 MG DELAYED RELEASE TAB PO SCH (09:35)
--- NOTE | 2018-02-28 09:43 | HHI.PR ---
Subjective Remarks Patient reports some mild right knee discomfort. Nursing staff states patient had a bowel movement. Objective Vitals Vital Signs Date Time Temp Pulse Resp B/P (MAP) Pulse Ox O2 Delivery O2 Flow Rate FiO2 02/28/18 08:00 98.6 95 18 123/75 (91) 93 02/27/18 23:45 98.4 95 18 130/60 (83) 93 02/27/18 22:32 Room Air 02/27/18 17:45 99.9 105 18 151/68 (95) 92 02/27/18 16:00 98.2 101 17 131/72 (91) 93 02/27/18 11:47 99.0 103 17 164/75 (104) 94 I/O 02/27/18 02/27/18 02/27/18 02/28/18 02/28/18 02/28/18 07:00 15:00 23:00 07:00 15:00 23:00 Intake Total 720 ml 480 ml 300 ml Balance 720 ml 480 ml 300 ml Intake Oral 720 ml 480 ml 300 ml # Voids 3 4 4 # Bowel Movements 1 3 0 Result Diagram: 02/26/18 0512 02/26/18 0512 Other Results Item Value Date Time Bedside Blood Glucose 110 mg/dl 02/26/18 0800 Bedside Blood Glucose 110 mg/dl 02/26/18 0614 Objective Remarks GENERAL: This is a well-nourished, well-developed patient, in no apparent distress. CARDIOVASCULAR: Regular rate and rhythm RESPIRATORY: Clear to auscultation. Breath sounds equal bilaterally. No wheezes , rales, or rhonchi. MUSCULOSKELETAL: Extremities without clubbing, cyanosis, or edema. Right knee bandage clean dry and intact NEURO: Alert & Oriented x4 to person, place, time, situation. Moves all ext x4 Procedures Right TKA on 02/24/[address] Whitehead. A/P Problem List: (1) Osteoarthritis of right knee ICD Code: M17.11 - Unilateral primary osteoarthritis, right knee Assessment and Plan 82-year-old female with history of osteoarthritis, HTN, DM, GERD, admitted to [facility] for right total knee arthroplasty by Dr. Whitehead. Osteoarthritis s/p operative day #4 right TKA: Surgery done 02/24/[address] Whitehead. -Continue pain control with [place] prn -DVT prophylaxis with aspirin bid per orthopedic surgery -Continue physical therapy, progress to full weightbearing Acute anemia: Hgb 10.1 post-operatively -stable, no signs of profuse bleeding -monitor CBC, trended down slightly to 9.1 on 02/26 Hypertension/Hyperlipidemia: Chronic, BP fairly well-controlled -Continue patient's nifedipine 90 mg daily, lisinopril 20 mg daily, [id number] mg daily -Monitor BP, adjust antihypertensives as needed Diabetes mellitus, type II: Chronic; blood sugars controlled -Continue patient's metformin 1000 mg bid GERD: Chronic -Continue patient's PPI DVT prophylaxis: Aspirin bid per ortho Discharge Planning Discharge to shelter facility [facility] per orthopedic surgery today. Problem Qualifiers (1) Osteoarthritis of right knee: Qualified Codes: M17.11 - Unilateral primary osteoarthritis, right knee Arlyn Moeller MD February 28, 2018 09:43
[2018-02-28] MEDS: ASPIRIN EC 81 MG TABEC PO SCH (09:45)
[2018-02-28] MEDS: POLYETHYLENE GLYCOL 17 GM PKG PO SCH (09:45)
[2018-02-28 11:30] VITALS: BP 148/72; PULSE 94; RESP 18; TEMP 98.4; O2SAT 99
== END 2018-02-28 11:47 | DRG 470 ==
LOC: HSDI 02-24 10:03 → N06B 02-24 18:33
PROVIDERS: ADMIT Orthopaedic Surgery Orthopaedic Surgery of the Spine; ATTEND Orthopaedic Surgery Orthopaedic Surgery of the Spine
PROC: 3E0T3BZ Introduction of Anesthetic Agent into Peripheral Nerves and Plexi, Percutaneous Approach (ICD-10-PCS; 2018-02-24)
PROC: 0SRC0J9 Replacement of Right Knee Joint with Synthetic Substitute, Cemented, Open Approach (ICD-10-PCS; principal; 2018-02-24 14:17)
DX: M17.11 Unilateral primary osteoarthritis, right knee (principal); R65.10 Systemic inflammatory response syndrome (SIRS) of non-infectious origin without acute organ dysfunction; E11.9 Type 2 diabetes mellitus without complications; Z79.84 Long term (current) use of oral hypoglycemic drugs; D62 Acute posthemorrhagic anemia; I10 Essential (primary) hypertension; E78.5 Hyperlipidemia, unspecified; K21.9 Gastro-esophageal reflux disease without esophagitis; M21.069 Valgus deformity, not elsewhere classified, unspecified knee; M48.061 Spinal stenosis, lumbar region without neurogenic claudication; E66.9 Obesity, unspecified; Z68.34 Body mass index [BMI] 34.0-34.9, adult; K59.00 Constipation, unspecified
CPT/HCPCS: 71045; 73560; 80048; 81001; 82948; 85014; 85018; 85025; 86850; 86900; 86901; 86920; 94150; C1776; C9290; J0131; J0690; J0735; J1170; J1580; J1885; J2250; J2270; J2370; J2405; J2795; J3010; J3370; J7050; J7120; L1830